=== PATIENT | female | born 1995 | race Caucasian/White ===

== ENCOUNTER 2023-07-26 17:17 | Emergency (ER) | payer OTHER, SELFPAY ==
[2023-07-26 17:30] VITALS: BP 131/98; PULSE 81; TEMP 36.6; O2SAT 98; BMI 30.2
[2023-07-26] MEDS: 0.9 % SODIUM CHLORIDE 1,000 ML 999 ML IV (19:08)
--- NOTE | 2023-07-26 19:08 | ED_ITS ---
HPI HPI - General Adult General Chief complaint: Abdominal Pain Stated complaint: Abdominal Pain Time Seen by Provider: 07/26/23 18:17 Source: patient Mode of arrival: walk-in Limitations: no limitations History of Present Illness HPI narrative: Patient is a 28-year-old female who presents to the emergency department for bilateral upper abdominal pain for the last day. She reports pain is worst in the epigastrium. Pain is worse with movement. She states she feels bloated and as though there is pressure in the abdomen. She denies fevers, chills. She has had subjective hot and cold sensation throughout the day. She is not concerned for . She denies any flank or back pain. She has had softer than normal stool but denies any watery diarrhea or blood in her stool that she is aware of. No medications taken prior to arrival. No sick contacts in the home. Related Data Previous Rx's ?Medication ?Instructions ?Recorded hyoscyamine sulfate 0.125 mg 0.125 mg PO Q6H PRN abdominal pain 07/26/23 tablet (Levsin) #12 tabs ondansetron 4 mg disintegrating 4 mg PO Q6H PRN nausea and 07/26/23 tablet vomiting #12 tabs sucralfate 1 gram tablet (Carafate) 1 g PO Q6H PRN abdominal pain #12 07/26/23 tabs Allergies Allergy/AdvReac Type Severity Reaction Status Date / Time No Known Drug Allergies Allergy Verified 07/26/23 17:29 Opioid HPI Opioid Management Most Recent Opioid Data: No Data to Display Review of Systems ROS Constitutional Denies: fever or chills Ears, nose, mouth, and throat Denies: throat pain or nasal congestion Cardiovascular Denies: chest pain Respiratory Denies: shortness of breath or cough Gastrointestinal Reports: abdominal pain; Denies: nausea, vomiting or diarrhea Musculoskeletal Denies: back pain Integumentary/Breast Denies: rash Neurological Denies: headache Hematologic/Lymphatic Denies: easy bruising or easy bleeding Exam Narrative Exam Narrative: Gen.: Awake, alert, in no distress Head: Normocephalic, atraumatic ENT: Moist mucous membranes Respiratory: No respiratory distress, lungs clear bilaterally Cardio: Regular rate and rhythm Gastrointestinal: Abdomen is soft, nondistended and Mildly tender to palpation in the epigastrium and bilateral upper quadrants of the abdomen with no guarding or rebound Extremities: Moves extremities equally Psych: Normal mood and affect Neuro: No focal neuro deficit Skin: Warm, dry, intact Constitutional Vital Signs, click to edit/add: Last Vital Signs Temp 97.9 F 07/26/23 17:30 Pulse 81 07/26/23 17:30 Resp 15 07/26/23 17:30 BP 131/98 H 07/26/23 17:30 Pulse Ox 98 07/26/23 17:30 O2 Del Method Room Air 07/26/23 17:30 Course Vital Signs Vital signs: Vital Signs Temperature 97.9 F 07/26/23 17:30 Pulse Rate 81 07/26/23 17:30 Respiratory Rate 15 07/26/23 17:30 Blood Pressure 131/98 H 07/26/23 17:30 Pulse Oximetry 98 07/26/23 17:30 Oxygen Delivery Method Room Air 07/26/23 17:30 Temperature 97.9 F 07/26/23 17:30 Pulse Rate 81 07/26/23 17:30 Respiratory Rate 15 07/26/23 17:30 Blood Pressure 131/98 H 07/26/23 17:30 Pulse Oximetry 98 07/26/23 17:30 Oxygen Delivery Method Room Air 07/26/23 17:30 Medical Decision Making MDM Narrative Medical decision making narrative: Patient was treated with IV fluids, Levsin, Pepcid, Zofran. She had no episodes of emesis in the ER. Lab studies are stable and CT of the abdomen and pelvis sh ows no evidence of acute abnormalities. Patient will be discharged home, abdomen is soft and benign with stable vital signs at discharge. Zofran, Levsin, Carafate given for home. Follow-up with PCP and return to the ER if symptoms change or worsen Medical Records Medical records reviewed: Yes I reviewed the patient's medical records Lab Data Lab results reviewed: Yes I reviewed the patient's lab results Labs: Lab Results 07/26/23 Range/Units 18:44 WBC 9.5 (4.0-11.0) 10^3/uL RBC 4.85 (4.20-5.40) 10^6/uL Hgb 14.1 (12.0-16.0) g/dL Hct 43.4 (36.0-48.0) % MCV 89.5 (81.0-99.0) fL MCH 29.1 (26.7-34.0) pg MCHC 32.5 (29.9-35.2) g/dL RDW 12.3 (11.0-15.0) % Plt Count 263 (150-450) 10^3/uL MPV 9.5 (9.5-13.5) fL Neut % (Auto) 50.4 (43.0-75.0) % Lymph % (Auto) 35.1 (20.5-60.0) % [place] % (Auto) 11.0 (1.7-12.0) % Eos % (Auto) 2.5 (0.9-7.0) % Baso % (Auto) 0.8 (0.2-2.0) % Neut # (Auto) 4.8 (1.4-6.5) 10^3/uL Lymph # (Auto) 3.3 (1.2-3.8) 10^3/uL [place] # (Auto) 1.0 H (0.3-0.8) 10^3/uL Eos # (Auto) 0.2 (0.0-0.7) 10^3/uL Baso # (Auto) 0.1 (0.0-0.1) 10^3/uL Abs Immat Gran (auto) 0.02 (0.00-0.03) 10^3/uL Imm/Tot Granulo (auto) 0.2 (0.0-0.5) % PT 12.9 H (9.0-11.6) sec INR 1.24 Sodium 138 (136-145) mmol/L Potassium 4.1 (3.5-5.1) mmol/L Chloride 101 (98-107) mmol/L Carbon Dioxide 29.7 (21.0-32.0) mmol/L Anion Gap 11.4 BUN 10.0 (7.0-18.0) mg/dL Creatinine 0.66 (0.55-1.02) mg/dL Est GFR ( Amer) >60 (>=60) Est GFR (Non-Af Amer) >60 (>=60) BUN/Creatinine Ratio 15.2 Glucose 79 (74-106) mg/dL Lactate 0.5 (0.4-2.0) mmol/L Calcium 9.3 (8.5-10.1) mg/dL Total Bilirubin 0.4 (0.2-1.0) mg/dL AST 19 (15-37) U/L ALT 25 (14-59) U/L Alkaline Phosphatase 86 (46-116) U/L Total Protein 7.6 (6.4-8.2) g/dL Albumin 3.8 (3.4-5.0) g/dL Globulin 3.8 g/dL Albumin/Globulin Ratio 1.0 Lipase 27.0 (16.0-77.0) U/L Serum HCG, Qual Negative (NEGATIVE) Imaging Data CT scan - abdomen: Attestation: I have reviewed the pertinent imaging results. Radiologist's impression: ITS Impressions Abdomen/Pelvis CT 07/26/23 19:29 IMPRESSION: No acute abnormality. Electronically authenticated by: KUMAR BAILEY Date: 07/26/2023 20:30 Discharge Plan Discharge Stand Alone Forms: Portal Instructions Chief Complaint: Abdominal Pain Clinical Impression: Abdominal pain Patient Disposition: Home, Self-Care Time of Disposition Decision: 20:56 Condition: Good Prescriptions / Home Meds: New sucralfate [Carafate] 1 gram tablet 1 g PO Q6H PRN (Reason: abdominal pain) Qty: 12 0RF hyoscyamine sulfate [Levsin] 0.125 mg tablet 0.125 mg PO Q6H PRN (Reason: abdominal pain) Qty: 12 0RF ondansetron 4 mg tablet,disintegrating 4 mg PO Q6H PRN (Reason: nausea and vomiting) Qty: 12 0RF Print Language: Belgian Instructions: Acute Abdominal Pain (ED) Referrals: Physician,Non-Staff, MD [Primary Care Provider] - 1 week
[2023-07-26 19:13] LABS: Basophils Absolute Auto 0.1 10^3/uL (0.0-0.1); Basophils Percent Auto 0.8 % (0.2-2.0); Eosinophils Absolute Auto 0.2 10^3/uL (0.0-0.7); Eosinophils Percent Auto 2.5 % (0.9-7.0); Hematocrit 43.4 % (36.0-48.0); Hemoglobin 14.1 g/dL (12.0-16.0); Immature Granulocytes Abs Auto 0.02 10^3/uL (0.00-0.03); Immature Granulocytes Pct Auto 0.2 % (0.0-0.5); Lymphocytes Absolute Auto 3.3 10^3/uL (1.2-3.8); Lymphocytes Percent Auto 35.1 % (20.5-60.0); Mean Corpuscular HGB Conc 32.5 g/dL (29.9-35.2); Mean Corpuscular Hemoglobin 29.1 pg (26.7-34.0); Mean Corpuscular Volume 89.5 fL (81.0-99.0); Mean Platelet Volume 9.5 fL (9.5-13.5); Neutrophils Absolute Auto 4.8 10^3/uL (1.4-6.5); Neutrophils Percent Auto 50.4 % (43.0-75.0); Platelet Count 263 10^3/uL (150-450); Red Blood Count 4.85 10^6/uL (4.20-5.40); Red Cell Distribution Width 12.3 % (11.0-15.0); White Blood Count 9.5 10^3/uL (4.0-11.0)
[2023-07-26] MEDS: FAMOTIDINE/PF 20 MG/2 ML VIAL IV (19:17)
[2023-07-26] MEDS: HYOSCYAMINE SULFATE 0.125 MG TAB.SUBL SL (19:17)
[2023-07-26] MEDS: ONDANSETRON PF 4 MG/2 ML VIAL IV (19:17)
[2023-07-26 19:25] LABS: HCG Qualitative NEGATIVE (NEGATIVE)
[2023-07-26 19:29] LABS: INR 1.24; Prothrombin Time 12.9 sec (9.0-11.6)
--- NOTE | 2023-07-26 19:29 | CT_ITS ---
[address] [address] Patient Name: FELIPA HARTLEY MRN: [id number] date: 1995 Sex: F Assigned Patient Location: ER Current Patient Location: Accession/Order Number: [id number] Exam Date: 07/26/2023 19:40 Report Date: 07/26/2023 20:30 At the request of: CARLA LOPEZ Procedure: CT abdomen pelvis w con EXAM: CT abdomen pelvis w con HISTORY: Abdominal pain COMPARISON: None. TECHNIQUE: Axial CT imaging was performed through the abdomen and pelvis with intravenous contrast. Multiplanar reformats were performed. Dose reduction techniques were achieved by using automated exposure control and/or adjustment of mA and/or kV according to patient size and/or use of iterative reconstruction technique. FINDINGS: Lung bases: Lung bases are clear. No pleural effusion. GI upper: Unremarkable. Liver: Normal size and contour. Gallbladder: No significant abnormality. No cholelithiasis. Biliary system: No intra or extrahepatic biliary ductal dilatation. Spleen: Normal size. Pancreas: Unremarkable. Adrenal glands: Normal adrenal glands. Kidneys/ureters: Normal contours. No hydronephrosis. No nephrolithiasis or ureterolithiasis. Vessels: No aneurysm. Lymph Nodes: No lymphadenopathy. Small bowel: No wall thickening or dilatation. Colon: No wall thickening or dilatation. Appendix: No findings of appendicitis. Peritoneal cavity: No free fluid or pneumoperitoneum. Lower : Intrauterine device is in place. Bones: No acute bony abnormality. Soft tissues: No acute finding. Additional findings: None. CT/CT abdomen pelvis w con IMPRESSION: No acute abnormality. Electronically authenticated by: KUMAR BAILEY Date: 07/26/2023 20:30
[2023-07-26 19:30] LABS: Alanine Aminotransferase 25 U/L (14-59); Albumin Level 3.8 g/dL (3.4-5.0); Alkaline Phosphatase 86 U/L (46-116); Anion Gap 11.4; Aspartate Amino Transferase 19 U/L (15-37); BUN Creatinine Ratio 15.2; Bilirubin Total 0.4 mg/dL (0.2-1.0); Calcium 9.3 mg/dL (8.5-10.1); Carbon Dioxide 29.7 mmol/L (21.0-32.0); Chloride 101 mmol/L (98-107); Estimated GFR (African America >60 (>=60); Estimated GFR (Non-African Ame >60 (>=60); Globulin 3.8 g/dL; Glucose 79 mg/dL (74-106); Potassium 4.1 mmol/L (3.5-5.1); Sodium 138 mmol/L (136-145); Total Protein 7.6 g/dL (6.4-8.2)
[2023-07-26 19:38] LABS: Lactate/Lactic Acid 0.5 mmol/L (0.4-2.0)
== END 2023-07-26 21:09 | disposition home or self-care (01) ==
PROVIDERS: Physician Assistant; Emergency Provider Emergency Medicine
DX: R10.9 Unspecified abdominal pain (principal)
CPT/HCPCS: 36415; 74177; 80053; 83605; 83690; 84703; 85025; 85610; 96374; 96375; 99285; Q9967